=== PATIENT | female | born 1950 | race Caucasian/White ===

== ENCOUNTER 2020-12-03 18:33 | Emergency (ER) | payer MEDICARE ==
[~2020-12-03 18:33] MED LIST: ASPIRIN CHEWABL81 MG PO; EFFEXOR 37.537.5 MG PO; MIRALAX17 GM PO; NAPROXEN 250 M250 MG PO; NEXIUM40 MG PO; NORCO 7.5-3251 EACH PO; ZOCOR20 MG PO; ZYRTEC10 MG PO
[2020-12-03 19:36] LABS: HEMOGLOBIN 14.9 gm/dl (12.3-15.3); RED BLOOD COUNT 4.96 M/UL (4.00-5.10)
[2020-12-03 20:02] LABS: BUN/CREATININE RATIO 13 (0-10)
[2020-12-03] MEDS ORDERED: LODINE CAP 300300 MG PO (20:59)
[2020-12-03] MEDS ORDERED: ZOFRAN ODT 4 MG4 MG PO (20:59)
[2020-12-03] MEDS ORDERED: BENTYL 20MG TAB20 MG PO (20:59)
[2020-12-03] MEDS ORDERED: AUGMENTIN 875-1 EACH PO (20:59)
== END 2020-12-03 21:30 | disposition home or self-care (01) ==
LOC: ER1 18:33
PROVIDERS: Physician Assistant
DX: K57.32 Diverticulitis of large intestine without perforation or abscess without bleeding (principal); K21.9 Gastro-esophageal reflux disease without esophagitis; I10 Essential (primary) hypertension; Z90.710 Acquired absence of both cervix and uterus
CPT/HCPCS: 80053; 81001; 83605; 83690; 85025; 87086; 96374; 99284; J2405; Q9967